=== PATIENT | female | born 1985 | race American Indian/Alaskan Native ===

== ENCOUNTER 2017-04-18 23:23 | Emergency (ER) | payer MEDICAID ==
[2017-04-18 23:47] VITALS: BP 131/88; PULSE 92; RESP 18; TEMP 99; O2SAT 98
--- NOTE | 2017-04-19 | C.PDOC ---
History Of Present Illness Patient presents to the ER with a complaint of severe headache, mild photophobia , and body aches. Patient states she also had a fever earlier today which resolved after taking tylenol. Patient states the headache feels similar to when her myositis acts up. Denies nausea or vomiting. Time Seen by Provider: 04/19/17 00:00 Chief Complaint (Nursing): Headache History Per: Patient History/Exam Limitations: no limitations Onset/Duration Of Symptoms: Hrs Current Symptoms Are (Timing): Still Present Severity: Mild Pain Scale Rating Of: 4 Preceeding Symptoms: None Associated Symptoms: denies: Photophobia, Blurred Vision, Nausea, Vomiting, Extremity Weakness Recent travel outside of the [place]: No Additional History Per: Patient Past Medical History Reviewed: Historical Data, Nursing Documentation, Vital Signs Vital Signs: Last Vital Signs Temp 99.0 F 04/18/17 23:43 Pulse 92 H 04/18/17 23:43 Resp 18 04/18/17 23:43 BP 131/88 04/18/17 23:43 Pulse Ox 98 04/19/17 06:54 - Medical History PMH: Asthma, Deep Vein Thrombosis Surgical History: No Surg Hx Family History: States: No Known Family Hx - Social History Hx Alcohol Use: Yes Hx Substance Use: No - Immunization History Hx Influenza Vaccination: No Review Of Systems Constitutional: Positive for: Fever Eyes: Positive for: Other (Mild photophobia) Cardiovascular: Negative for: Chest Pain Gastrointestinal: Negative for: Nausea, Vomiting Musculoskeletal: Positive for: Other (Body aches). Negative for: Back Pain Skin: Negative for: Rash Neurological: Positive for: Headache Psych: Negative for: Anxiety Physical Exam - Physical Exam Appears: Non-toxic Skin: Warm, Dry Head: Normacephalic Eye(s): bilateral: Normal Inspection, PERRL, EOMI, Other (Mild photophobia) Oral Mucosa: Moist Chest: Symmetrical, No Tenderness Cardiovascular: Rhythm Regular Respiratory: No Rales, No Rhonchi, No Wheezing Gastrointestinal/Abdominal: Soft, No Tenderness Back: No CVA Tenderness Extremity: Normal ROM Extremity: Bilateral: Atraumatic Pulses: Left Dorsalis Pedis: Normal, Right Dorsalis Pedis: Normal Neurological/Psych: Oriented x3, Normal Speech, Normal Cognition Gait: Steady ED Course And Treatment - Laboratory Results Result Diagrams: 04/19/17 00:35 04/19/17 00:35 O2 Sat by Pulse Oximetry: 98 (Room air) Pulse Ox Interpretation: Normal Progress Note: Blood work and urinalysis ordered. Zofran administered. Reevaluation Time: 06:52 Reassessment Condition: Improved Disposition Counseled Patient/Family Regarding: Studies Performed, Diagnosis, Need For Followup, Rx Given - Disposition Referrals: Reji Howard MD [Primary Care Provider] - Disposition: HOME/ ROUTINE Disposition Time: 00:00 Condition: FAIR Instructions: Acute Headache (DC) Forms: [employer] (German) - Clinical Impression Clinical Impression: Migraine - Scribe Statement The provider has reviewed the documentation as recorded by the Scribe Freddy Nina All medical record entries made by the Scribe were at my direction and personally dictated by me. I have reviewed the chart and agree that the record accurately reflects my personal performance of the history, physical exam, medical decision making, and the department course for this patient. I have also personally directed, reviewed, and agree with the discharge instructions and disposition.
[2017-04-19 00:39] LABS: BASO # 0.1 K/uL (0.0-0.2); BASO % 1.4 % (0.0-2.0); EOS # 0.3 K/uL (0.0-0.7); EOS % 4.2 % (0.0-4.0); HEMATOCRIT 47.5 % (34.0-47.0); LYMPH # 1.4 K/uL (1.0-4.3); LYMPH % 18.2 % (20.0-40.0); MEAN CELL VOLUME 88.2 fL (81.0-99.0); MEAN CORPUSCULAR HEMOGLOBIN 29.6 pg (27.0-31.0); MEAN CORPUSCULAR HGB CONC 33.5 g/dL (33.0-37.0); MEAN PLATELET VOLUME 7.7 fL (7.2-11.7); MONO # 0.7 K/uL (0.0-0.8); MONO % 8.6 % (0.0-10.0); NRBC % 0.3 % (0.0-2.0); RED CELL DISTRIBUTION WIDTH 13.6 % (11.5-14.5); WHITE BLOOD COUNT 7.8 K/uL (4.8-10.8)
[2017-04-19 00:43] LABS: INR 1.2
[2017-04-19 00:45] LABS: RBC URINE 4 /hpf (0-3); URINE BACTERIA RARE (<OCC); URINE BILIRUBIN NEGATIVE (NEGATIVE); URINE BLOOD 3+ (NEGATIVE); URINE COLOR Yellow (YELLOW); URINE GLUCOSE (UA) NORMAL (Normal); URINE KETONE TRACE mg/dL (NEGATIVE); URINE LEUKOCYTE ESTERASE NEG Leu/uL (Negative); URINE PROTEIN NEGATIVE (NEGATIVE); URINE UROBILINOGEN NORMAL mg/dL (0.2-1.0); WBC URINE 2 /hpf (0-5)
[2017-04-19 00:51] LABS: CHLORIDE 97 mmol/L (98-107); POTASSIUM 3.9 mmol/L (3.6-5.2); SODIUM 137 mmol/L (132-148)
[2017-04-19 00:53] LABS: GFR AFRICAN-AMERICAN > 60
[2017-04-19 00:54] LABS: ALB/GLOB RATIO 1.3 (1.0-2.1); ALKALINE PHOSPHATASE 66 U/L (38-126); ALT/SGPT 18 U/L (9-52); AST/SGOT 25 U/L (14-36); BILIRUBIN,TOTAL 0.7 mg/dL (0.2-1.3); BLOOD UREA NITROGEN 8 mg/dL (7-17); CARBON DIOXIDE 23 mmol/L (22-30); GLUCOSE,RANDOM 84 mg/dL (65-105); TOTAL PROTEIN 8.7 g/dL (6.3-8.3)
[2017-04-19] MEDS ORDERED: Morphine 4 MG/ML VIAL ONE (01:36)
--- NOTE | 2017-04-19 02:03 | CT ---
EXAM: CT Head Without Intravenous Contrast CLINICAL HISTORY: 32 years old, female; Pain; Headache TECHNIQUE: Axial computed tomography images of the head/brain without intravenous contrast. All CT scans at this facility use one or more dose reduction techniques, viz.: automated exposure control; ma/kV adjustment per patient size (including targeted exams where dose is matched to indication; i.e. head); or iterative reconstruction technique. COMPARISON: No relevant prior studies available. FINDINGS: Brain: No acute intracranial hemorrhage. No significant white matter disease. No edema. Ventricles: No significant ventriculomegaly. Bones: No acute displaced fracture. Sinuses: Unremarkable as visualized. No acute sinusitis. Mastoid air cells: Unremarkable as visualized. No mastoid effusion. IMPRESSION: No acute intracranial hemorrhage, or suspicious mass effect.
[2017-04-19] MEDS ORDERED: Sodium Chloride 0.9% 1,000 ML IV ONE (02:35)
== END 2017-04-19 05:00 | disposition home or self-care (01) ==
LOC: SUPCPDRO 23:23 → C.ER 23:23
DX: G43.909 Migraine, unspecified, not intractable, without status migrainosus (principal)
CPT/HCPCS: 70450; 80053; 81001; 82550; 84703; 85025; 85610; 96374; 96375; 96376; 99284; J1885; J2270; J2405; J7040

== ENCOUNTER 2017-04-19 16:56 | Inpatient (IN) | payer MEDICAID ==
--- NOTE | 2017-04-19 17:33 | C.PDOC ---
Time Seen by Provider: 04/19/17 17:32 Chief Complaint (Nursing): Abnormal Skin Integrity Past Medical History Vital Signs: Last Vital Signs Temp 99.1 F 04/19/17 17:21 Pulse 98 H 04/19/17 17:21 Resp 19 04/19/17 17:21 BP 131/72 04/19/17 17:21 Pulse Ox 96 04/19/17 17:21 - Medical History PMH: Asthma, Deep Vein Thrombosis - Social History Hx Alcohol Use: Yes Hx Substance Use: No - Immunization History Hx Tetanus Toxoid Vaccination: No Hx Influenza Vaccination: (unk) Hx Pneumococcal Vaccination: Yes ED Course And Treatment O2 Sat by Pulse Oximetry: 96 Disposition - Disposition
[2017-04-19] MEDS ORDERED: Sodium Chloride 0.9% 1,000 ML IV ONE (19:38)
--- NOTE | 2017-04-19 19:38 | C.PDOC ---
History Of Present Illness Patient presents to ED with complaints of head ache and rash to left thigh. Patient was seen yesterday at ED for acute migraine and had negative work up. Patient now returns to ed with throbbing dull headache 11/08. Patient denies fever, chills, n/v/d or any other complaints at this time. Patient is on medication for myositis Time Seen by Provider: 04/19/17 17:32 Chief Complaint (Nursing): Abnormal Skin Integrity History Per: Patient History/Exam Limitations: no limitations Onset/Duration Of Symptoms: Days Current Symptoms Are (Timing): Still Present Severity: Mild Pain Scale Rating Of: 2 Reports Recently: Seen In ED Additional History Per: Patient Past Medical History Reviewed: Historical Data, Nursing Documentation, Vital Signs Vital Signs: Last Vital Signs Temp 100.3 F H 04/19/17 18:01 Pulse 98 H 04/19/17 17:21 Resp 19 04/19/17 17:21 BP 131/72 04/19/17 17:21 Pulse Ox 96 04/19/17 22:27 - Medical History PMH: Asthma, Deep Vein Thrombosis Surgical History: No Surg Hx Family History: States: No Known Family Hx - Social History Hx Alcohol Use: Yes Hx Substance Use: No - Immunization History Hx Tetanus Toxoid Vaccination: No Hx Influenza Vaccination: (unk) Hx Pneumococcal Vaccination: Yes Review Of Systems Constitutional: Negative for: Fever, Chills Gastrointestinal: Negative for: Nausea, Vomiting Skin: Positive for: Rash Neurological: Positive for: Headache. Negative for: Weakness, Numbness Physical Exam - Physical Exam Appears: Non-toxic, No Acute Distress Skin: Warm, Dry, Rash (2x3 area of erythema almost vasicular, rash to left mid thigh and 2 small vesicles on left inner thigh) Head: Normacephalic Oral Mucosa: Moist Neck: Normal ROM, Supple Cardiovascular: Rhythm Regular Respiratory: No Rales, No Rhonchi, No Wheezing Gastrointestinal/Abdominal: Soft, No Tenderness, No Guarding, No Rebound Neurological/Psych: Oriented x3 ED Course And Treatment - Laboratory Results Result Diagrams: 04/19/17 20:02 04/19/17 20:02 O2 Sat by Pulse Oximetry: 96 (RA) Pulse Ox Interpretation: Normal Disposition Discussed With : Gilberto Gilbert Comment: accepted the pt on his service and took over the care at 10PM Counseled Patient/Family Regarding: Studies Performed, Diagnosis - Disposition Disposition: HOSPITALIZED Disposition Time: 19:38 Condition: FAIR Forms: [employer] (Sammarinese) - Clinical Impression Clinical Impression: Intractable headache, Skin lesion - Scribe Statement The provider has reviewed the documentation as recorded by the Jerricaibestephania Bansal All medical record entries made by the Jerricaibe were at my direction and personally dictated by me. I have reviewed the chart and agree that the record accurately reflects my personal performance of the history, physical exam, medical decision making, and the department course for this patient. I have also personally directed, reviewed, and agree with the discharge instructions and disposition. Decision To Admit - Pt Status Changed To: Hospital Disposition Of: Inpatient - Admit Certification Admit to Inpatient:: After my assessment, the patient will require hospitalization for at least two midnights. This is because of the severity of symptoms shown, intensity of services needed, and/or the medical risk in this patient being treated as an outpatient. - InPatient: Physician Admission Certification: I certify that this patient requires 2 or more midnights of care for the following reason:: After my assessment, the patient will require hospitalization for at least two midnights. This is because of the severity of symptoms shown, intensity of services needed, and/or the medical risk in this patient being treated as an outpatient. - . Bed Request Type: Regular Admitting Physician: Gilberto Gilbert Patient Diagnosis: Intractable headache, Skin lesion
[2017-04-19 20:11] LABS: VENOUS BLOOD GAS BASE EXCESS -1.9 mmol/L (0.0-2.0); VENOUS BLOOD GAS PCO2 46 mmHg (40-60); VENOUS BLOOD PH 7.33 (7.32-7.43)
[2017-04-19 20:15] LABS: BASO # 0.1 K/uL (0.0-0.2); BASO % 0.8 % (0.0-2.0); EOS # 0.2 K/uL (0.0-0.7); EOS % 2.7 % (0.0-4.0); HEMATOCRIT 39.1 % (34.0-47.0); LYMPH # 0.9 K/uL (1.0-4.3); LYMPH % 13.8 % (20.0-40.0); MEAN CELL VOLUME 86.8 fL (81.0-99.0); MEAN CORPUSCULAR HEMOGLOBIN 29.3 pg (27.0-31.0); MEAN CORPUSCULAR HGB CONC 33.8 g/dL (33.0-37.0); MEAN PLATELET VOLUME 7.9 fL (7.2-11.7); MONO # 0.6 K/uL (0.0-0.8); MONO % 8.8 % (0.0-10.0); NRBC % 0.1 % (0.0-2.0); RED CELL DISTRIBUTION WIDTH 13.7 % (11.5-14.5); WHITE BLOOD COUNT 6.8 K/uL (4.8-10.8)
[2017-04-19 20:26] LABS: CHLORIDE 103 mmol/L (98-107); POTASSIUM 4.1 mmol/L (3.6-5.2); SODIUM 139 mmol/L (132-148)
[2017-04-19 20:28] LABS: AST/SGOT 32 U/L (14-36); BILIRUBIN,TOTAL 0.7 mg/dL (0.2-1.3); CARBON DIOXIDE 24 mmol/L (22-30); GFR AFRICAN-AMERICAN > 60
[2017-04-19 20:29] LABS: ALB/GLOB RATIO 1.2 (1.0-2.1); ALKALINE PHOSPHATASE 50 U/L (38-126); ALT/SGPT 21 U/L (9-52); BLOOD UREA NITROGEN 11 mg/dL (7-17); CALCIUM 8.9 mg/dl (8.6-10.4); GLUCOSE,RANDOM 89 mg/dL (65-105); TOTAL PROTEIN 7.8 g/dL (6.3-8.3)
[2017-04-19] MEDS ORDERED: HYDROmorphone 1 mg/ml ISec IVP STA (21:35)
[2017-04-19] MEDS ORDERED: cefTRIAXone IV 1 gm in Dextros 50 ML IVPB ONE (21:48)
--- NOTE | 2017-04-19 23:22 | CP.PCM.HP ---
Past Patient History - Past Social History Smoking Status: Never Smoked - PULMONARY Hx Asthma: Yes - INTEGUMENTARY Other/Comment: Lypoma - MUSCULOSKELETAL/RHEUMATOLOGICAL Other/Comment: Myositis - PSYCHIATRIC Hx Substance Use: No - SURGICAL HISTORY Hx Surgeries: Yes Other/Comment: muscle biopsy, - ANESTHESIA Hx Anesthesia: Yes Hx Anesthesia Reactions: No Meds Allergies/Adverse Reactions: Allergies Allergy/AdvReac Type Severity Reaction Status Date / Time iodine Allergy Severe ANAPHYLAXIS Verified 04/19/17 17:26 shellfish derived Allergy Severe ANAPHYLAXIS Verified 04/19/17 17:26 Results - Vital Signs Recent Vital Signs: Last Vital Signs Temp 100.3 F H 04/19/17 18:01 Pulse 98 H 04/19/17 17:21 Resp 19 04/19/17 17:21 BP 131/72 04/19/17 17:21 Pulse Ox 96 04/19/17 22:44 - Labs Result Diagrams: 04/19/17 20:02 04/19/17 20:02 Labs: Laboratory Results - last 24 hr 04/19/17 04/19/17 04/19/17 20:00 20:02 20:02 WBC 6.8 RBC 4.50 Hgb 13.2 D Hct 39.1 MCV 86.8 MCH 29.3 MCHC 33.8 RDW 13.7 Plt Count 322 MPV 7.9 Neut % (Auto) 73.9 Lymph % (Auto) 13.8 L [place] % (Auto) 8.8 Eos % (Auto) 2.7 Baso % (Auto) 0.8 Neut # 5.0 Lymph # 0.9 L [place] # 0.6 Eos # 0.2 Baso # 0.1 pO2 25 L VBG pH 7.33 VBG pCO2 46 VBG HCO3 21.9 VBG Total CO2 25.7 VBG O2 Sat (Calc) 49.7 VBG Base Excess -1.9 L VBG Potassium 3.5 L Sodium 141.0 139 Chloride 110.0 H 103 Glucose 81 Lactate 1.1 Potassium 4.1 Carbon Dioxide 24 Anion Gap 16 BUN 11 Creatinine 0.7 Est GFR ( Amer) > 60 Est GFR (Non-Af Amer) > 60 Random Glucose 89 Calcium 8.9 Total Bilirubin 0.7 AST 32 ALT 21 Alkaline Phosphatase 50 Total Protein 7.8 Albumin 4.2 Globulin 3.6 Albumin/Globulin Ratio 1.2 Venous Blood Potassium 3.5 L
[2017-04-20] MEDS ORDERED: Vancomycin 1 GM 0 GM/0 ML BAG IVPB ONE (03:46)
[2017-04-20] MEDS: Enoxaparin 40 mg Syringe SC SCH (10:40)
[2017-04-20] MEDS: Pantoprazole 40 mg EC Tab PO SCH (10:41)
[2017-04-20] MEDS ORDERED: DiphenhydrAMINE 50 mg/ml Inj ONE (12:29)
[2017-04-20] MEDS ORDERED: DiphenhydrAMINE 50 mg/ml Inj IVP STA (12:35)
--- NOTE | 2017-04-20 17:05 | CP.PCM.CON ---
History of Present Illness - History of Present Illness History of Present Illness: Patient presents to ED with complaints of head ache and rash to left thigh. Patient was seen yesterday at ED for acute migraine and had negative work up. Patient now returns to ed with throbbing dull headache 11/08. Patient denies fever, chills, n/v/d or any other complaints at this time. Patient is on medication for myositis Takes tacrolimus prescribed by Rheum dr Silveira - Medical History PMH: Asthma, Deep Vein Thrombosis Myositis Review of Systems - Constitutional Constitutional: Anorexia, Chills, Fever - EENT Eyes: absent: As Per HPI, Blind Spots, Blurred Vision, Change in Vision, Decreased Night Vision, Diplopia, Discharge, Dry Eye, Exophthalmos, Floaters, Irritation, Itchy Eyes, Loss of Peripheral Vision, Pain, Photophobia, Requires Corrective Lenses, Sees Flashes, Spots in Vision, Tunnel Vision, Other Visual Disturbances, Loss of Vision, Other Ears: absent: As Per HPI, Decreased Hearing, Ear Discharge, Ear Pain, Tinnitus, Abnormal Hearing, Disequilibrium, Dizziness, Other Nose/Mouth/Throat: absent: As Per HPI, Epistaxis, Nasal Congestion, Nasal Discharge, Nasal Obstruction, Nasal Trauma, Nose Pain, Post Nasal Drip, Sinus Pain, Sinus Pressure, Bleeding Gums, Change in Voice, Dental Pain, Dry Mouth, Dysphagia, Halitosis, Hoarsness, Lip Swelling, Mouth Lesions, Mouth Pain, Odynophagia, Sore Throat, Throat Swelling, Tongue Swelling, Facial Pain, Neck Pain, Neck Mass, Other - Breasts Breasts: absent: As Per HPI, Change in Shape, Mass, Pain, Nipple Discharge, Nipple Inversion, Skin Changes, Swelling, Other - Cardiovascular Cardiovascular: absent: As Per HPI, Acrocyanosis, Chest Pain, Chest Pain at Rest , Chest Pain with Activity, Claudication, Diaphoresis, Dyspnea, Dyspnea on Exertion, Edema, Irregular Heart Rhythm, Pain Radiating to Arm/Neck/Jaw, Leg Edema, Leg Ulcers, Lightheadedness, Orthopnea, Palpitations, Paroxysmal Nocturnal Dyspnea, Pedal Edema, Radiating Pain, Rapid Heart Rate, Slow Heart Rate, Syncope, Other - Respiratory Respiratory: absent: As Per HPI, Cough, Dyspnea, Hemoptysis, Dyspnea on Exertion , Wheezing, Snoring, Stridor, Pain on Inspiration, Chest Congestion, Excessive Mucous Production, Change in Mucous Color, Pain with Coughing, Other - Gastrointestinal Gastrointestinal: absent: As Per HPI, Abdominal Pain, Belching, Bloating, Change in Bowel Habits, Change in Stool Character, Coffee Ground Emesis, Constipation, Cramping, Diarrhea, Dyspepsia, Dysphagia, Early Satiety, Excessive Flatus, Fecal Incontinence, Heartburn, Hematemesis, Hematochezia, Loose Stools, Melena, Nausea, Odynophagia, Temesmus, Vomiting, Other - Genitourinary Genitourinary: absent: As Per HPI, Change in Urinary Stream, Difficulty Urinating, Dysuria, Flank Pain, Hematuria, Pyuria, Nocturia, Urinary Incontinence, Urinary Frequency, Urinary Hesitance, Urinary Urgency, Voiding Freq/Small Amts, Freq UTI, Hx Renal/Bladder Calculi, Hx /Renal Surgery, Bladder Distension, Other - Reproductive: Female Reproductive:Female: absent: As Per HPI, Amenorrhea, Amenorrhea/ Control, Currently Menstual, Cycle <21 Days, Cycle >35 Days, Cycle Variable, Menses 1-7 Days, Menses >/= 8 Days, Menses Variable, Cycle > 4 Weeks Between, No Menses for 6 Months, Heavy Menses, Light Menses, Normal Menses, Spotting Between Cycles , S/P Hysterectomy, Menopausal, Post Menopausal, Premenarche, Abnormal Vaginal Bleeding, Dysmenorrhea, Dyspareunia, Genital Lesions, Genital Pruritis, Pelvic Pain, Prolapse Symptoms, Sexual Dysfunction, Vaginal Discharge, Vaginal Dryness , Vaginal Odor, Vaginal Pruritis, Other - Menstruation Menstruation: absent: As Per HPI, Amenorrhea, Amenorrhea/ Control, Currently Menstual, Cycle <21 Days, Cycle >35 Days, Cycle Variable, Menses 1-7 Days, Menses >/= 8 Days, Menses Variable, Cycle > 4 Weeks Between, No Menses for 6 Months, Heavy Menses, Light Menses, Normal Menses, Spotting Between Cycles , S/P Hysterectomy, Menopausal, Post Menopausal, Premenarche, Abnormal Vaginal Bleeding, Dysmenorrhea, Other - Musculoskeletal Musculoskeletal: As Per HPI - Integumentary Integumentary: absent: As Per HPI, Acne, Alopecia, Bleeding Lesions, Change in Hair, Change in Nails, Change in Pigmentation, Changing Lesions, Dry Skin, Erythema, Furuncle, Hirsutism, Lesions, New Lesions, Non-Healing Lesions, Photosensitivity, Pruritus, Rash, Skin Pain, Skin Ulcer, Sores, Striae, Swelling , Unusual Bruising, Wounds, Jaundice, Other - Neurological Neurological: As Per HPI - Psychiatric Psychiatric: absent: As Per HPI, Abnormal Sleep Pattern, Anhedonia, Anxiety, Auditory Hallucinations, Behavioral Changes, Change in Appetite, Change in Libido, Confusion, Depression, Difficulty Concentrating, Hallucinations, Homicidal Ideation, Hopelessness, Irritability, Memory Loss, Mood Swings, Panic Attacks, Paranoia, Suicidal Ideation, Visual Hallucinations, Tactile Hallucinations, Other - Endocrine Endocrine: absent: As Per HPI, Change in Body Appearance, Change in Libido, Cold Intolorance, Deepening of Voice, Excessive Sweating, Fatigue, Flushing, Heat Intolorance, Increase in Ring/Shoe/Hat Size, Palpitations, Polydipsia, Polyphagia, Polyuria, Other - Hematologic/Lymphatic Hematologic: absent: As Per HPI, Easy Bleeding, Easy Bruising, Lymphadenopathy, Other Past Patient History - Past Social History Smoking Status: Never Smoked - PULMONARY Hx Asthma: Yes - INTEGUMENTARY Other/Comment: Lypoma - MUSCULOSKELETAL/RHEUMATOLOGICAL Other/Comment: Myositis - PSYCHIATRIC Hx Substance Use: No - SURGICAL HISTORY Hx Surgeries: Yes Other/Comment: muscle biopsy, - ANESTHESIA Hx Anesthesia: Yes Hx Anesthesia Reactions: No Meds Allergies/Adverse Reactions: Allergies Allergy/AdvReac Type Severity Reaction Status Date / Time iodine Allergy Severe ANAPHYLAXIS Verified 04/19/17 17:26 shellfish derived Allergy Severe ANAPHYLAXIS Verified 04/19/17 17:26 - Medications Medications: Current Medications Acetaminophen (Tylenol 325mg Tab) 650 mg PO Q6 PRN PRN Reason: fever Last Admin: 04/20/17 14:33 Dose: 650 mg Enoxaparin Sodium (Lovenox) 40 mg SC DAILY [facility] Last Admin: 04/20/17 10:40 Dose: 40 mg Hydromorphone HCl (Dilaudid) 0.5 mg IVP Q8H PRN PRN Reason: Pain, moderate (4-7) Last Admin: 04/20/17 10:40 Dose: 0.5 mg Ceftriaxone Sodium 1 gm/ (Dextrose) 100 mls @ 50 mls/30 min IVPB DAILY [facility] Vancomycin HCl 1 gm/ Sodium (Chloride) 250 mls @ 166.7 mls/hr IVPB Q24H [facility] Last Admin: 04/20/17 10:41 Dose: 166.7 mls/hr Pantoprazole Sodium (Protonix Ec Tab) 40 mg PO DAILY [facility] Last Admin: 04/20/17 10:41 Dose: 40 mg Physical Exam - Constitutional Appears: Non-toxic, No Acute Distress, Chronically Ill - Head Exam Head Exam: ATRAUMATIC, NORMAL INSPECTION, NORMOCEPHALIC - Eye Exam Eye Exam: EOMI, PERRL. absent: Scleral icterus - ENT Exam ENT Exam: Mucous Membranes Dry, Normal External Ear Exam - Neck Exam Neck exam: Negative for: Lymphadenopathy - Respiratory Exam Respiratory Exam: Decreased Breath Sounds, Clear to Auscultation Bilateral - Cardiovascular Exam Cardiovascular Exam: REGULAR RHYTHM, +S1, +S2 - GI/Abdominal Exam GI & Abdominal Exam: Diminished Bowel Sounds, Soft. absent: Tenderness - Rectal Exam Rectal Exam: Deferred - Exam Exam: NORMAL INSPECTION - Extremities Exam Extremities exam: Positive for: pedal pulses present. Negative for: calf tenderness, pedal edema, tenderness - Back Exam Back exam: absent: CVA tenderness (L), CVA tenderness (R) - Neurological Exam Neurological exam: Alert, CN II-XII Intact, Oriented x3, Reflexes Normal - Psychiatric Exam Psychiatric exam: Normal Mood - Skin Skin Exam: Dry Results - Vital Signs Recent Vital Signs: Last Vital Signs Temp 98.8 F 04/20/17 07:58 Pulse 91 H 04/20/17 15:31 Resp 18 04/20/17 15:31 BP 108/56 L 04/20/17 15:31 Pulse Ox 100 04/20/17 15:31 - Labs Result Diagrams: 04/19/17 20:02 04/19/17 20:02 Labs: Laboratory Results - last 24 hr 04/19/17 04/19/17 04/19/17 20:00 20:02 20:02 WBC 6.8 RBC 4.50 Hgb 13.2 D Hct 39.1 MCV 86.8 MCH 29.3 MCHC 33.8 RDW 13.7 Plt Count 322 MPV 7.9 Neut % (Auto) 73.9 Lymph % (Auto) 13.8 L [place] % (Auto) 8.8 Eos % (Auto) 2.7 Baso % (Auto) 0.8 Neut # 5.0 Lymph # 0.9 L [place] # 0.6 Eos # 0.2 Baso # 0.1 ESR pO2 25 L VBG pH 7.33 VBG pCO2 46 VBG HCO3 21.9 VBG Total CO2 25.7 VBG O2 Sat (Calc) 49.7 VBG Base Excess -1.9 L VBG Potassium 3.5 L Sodium 141.0 139 Chloride 110.0 H 103 Glucose 81 Lactate 1.1 Potassium 4.1 Carbon Dioxide 24 Anion Gap 16 BUN 11 Creatinine 0.7 Est GFR ( Amer) > 60 Est GFR (Non-Af Amer) > 60 Random Glucose 89 Hemoglobin A1c Calcium 8.9 Total Bilirubin 0.7 AST 32 ALT 21 Alkaline Phosphatase 50 C-React Prot High Sens Total Protein 7.8 Albumin 4.2 Globulin 3.6 Albumin/Globulin Ratio 1.2 TSH 3rd Generation Venous Blood Potassium 3.5 L Rheum Arthritis Panel [place] 6 Profile [place]LL Titer [place] Pattern 04/20/17 04/20/17 04/20/17 07:26 07:47 07:47 WBC RBC Hgb Hct MCV MCH MCHC RDW Plt Count MPV Neut % (Auto) Lymph % (Auto) [place] % (Auto) Eos % (Auto) Baso % (Auto) Neut # Lymph # [place] # Eos # Baso # ESR 32 H pO2 VBG pH VBG pCO2 VBG HCO3 VBG Total CO2 VBG O2 Sat (Calc) VBG Base Excess VBG Potassium Sodium Chloride Glucose Lactate Potassium Carbon Dioxide Anion Gap BUN Creatinine Est GFR ( Amer) Est GFR (Non-Af Amer) Random Glucose Hemoglobin A1c 5.6 Calcium Total Bilirubin AST ALT Alkaline Phosphatase C-React Prot High Sens Total Protein Albumin Globulin Albumin/Globulin Ratio TSH 3rd Generation Venous Blood Potassium Rheum Arthritis Panel Negative [place] 6 Profile [place]LL Titer [place] Pattern 04/20/17 04/20/17 04/20/17 07:48 07:48 07:50 WBC RBC Hgb Hct MCV MCH MCHC RDW Plt Count MPV Neut % (Auto) Lymph % (Auto) [place] % (Auto) Eos % (Auto) Baso % (Auto) Neut # Lymph # [place] # Eos # Baso # ESR pO2 VBG pH VBG pCO2 VBG HCO3 VBG Total CO2 VBG O2 Sat (Calc) VBG Base Excess VBG Potassium Sodium Chloride Glucose Lactate Potassium Carbon Dioxide Anion Gap BUN Creatinine Est GFR ( Amer) Est GFR (Non-Af Amer) Random Glucose Hemoglobin A1c Calcium Total Bilirubin AST ALT Alkaline Phosphatase C-React Prot High Sens > 15.00 H Total Protein Albumin Globulin Albumin/Globulin Ratio TSH 3rd Generation 0.85 Venous Blood Potassium Rheum Arthritis Panel [place] 6 Profile Positive H [place] Titer 1:80 H [place] Pattern Speckled H Assessment & Plan (1) Intractable headache Status: Acute (2) Skin lesion Status: Acute (3) Migraine Status: Acute - Assessment and Plan (Free Text) Assessment: cont empiric iv antibiotic check lyme titers cdroplet precautions check CD4 on tacrolimus
[2017-04-20] MEDS ORDERED: cefTRIAXone 2 GM IN NS 2 GM/100 ML BAG IVPB SCH (17:15)
--- NOTE | 2017-04-20 17:41 | CP.PCM.PN ---
Subjective - Date & Time of Evaluation Date of Evaluation: 04/20/17 Time of Evaluation: 10:00 - Subjective Subjective: clinically same Objective - Vital Signs/Intake and Output Vital Signs (last 24 hours): Temp Pulse Resp BP Pulse Ox 98.8 F 91 H 18 108/56 L 100 04/20/17 07:58 04/20/17 15:31 04/20/17 15:31 04/20/17 15:31 04/20/17 15:31 - Medications Medications: Current Medications Acetaminophen (Tylenol 325mg Tab) 650 mg PO Q6 PRN PRN Reason: fever Last Admin: 04/20/17 14:33 Dose: 650 mg Enoxaparin Sodium (Lovenox) 40 mg SC DAILY [facility] Last Admin: 04/20/17 10:40 Dose: 40 mg Hydromorphone HCl (Dilaudid) 0.5 mg IVP Q8H PRN PRN Reason: Pain, moderate (4-7) Last Admin: 04/20/17 10:40 Dose: 0.5 mg Vancomycin HCl 1 gm/ Sodium (Chloride) 250 mls @ 166.7 mls/hr IVPB Q24H [facility] Last Admin: 04/20/17 10:41 Dose: 166.7 mls/hr Ceftriaxone Sodium 2 gm/ (Sodium Chloride) 100 mls @ 100 mls/hr IVPB Q12H [facility] Pantoprazole Sodium (Protonix Ec Tab) 40 mg PO DAILY [facility] Last Admin: 04/20/17 10:41 Dose: 40 mg - Labs Labs: 04/19/17 20:02 04/19/17 20:02 - Constitutional Appears: Well - Head Exam Head Exam: ATRAUMATIC, NORMAL INSPECTION, NORMOCEPHALIC - Eye Exam Eye Exam: EOMI, Normal appearance, PERRL Pupil Exam: NORMAL ACCOMODATION, PERRL - ENT Exam ENT Exam: Mucous Membranes Moist, Normal Exam - Neck Exam Neck Exam: Full ROM, Normal Inspection. absent: Lymphadenopathy - Respiratory Exam Respiratory Exam: Decreased Breath Sounds - Cardiovascular Exam Cardiovascular Exam: REGULAR RHYTHM, +S1, +S2 - GI/Abdominal Exam GI & Abdominal Exam: Soft, Diminished Bowel Sounds - Rectal Exam Rectal Exam: Deferred Assessment and Plan - Assessment and Plan (Free Text) Plan: Area started on acyclovir for the lower limb rash also by Dr. Lantigua Case discussed with Dr. Grzegorz muniz Rocephin and vancomycin all the patient had itchiness in the morning status post Benadryl IV continue same patient has no fever so far patient has no meningismal sign no need for the lumbar puncture and discussed with Dr. Cid
[2017-04-20] MEDS: cefTRIAXone 2 GM in Sodium Chloride 0.9% 100 ML IVPB SCH (18:39)
[2017-04-20] MEDS: Acyclovir 500 MG in Sodium Chloride 0.9% 100 ML IV SCH (20:38)
[2017-04-20] MEDS ORDERED: cefTRIAXone IV 1 gm in Dextros 1 GM in Dextrose 5% In Water 50 ML IVPB SCH (22:00)
[2017-04-20 23:56] VITALS: RESP 20
[2017-04-21] MEDS: Acyclovir 500 MG in Sodium Chloride 0.9% 100 ML IV SCH ×3 (03:17→20:39)
[2017-04-21] MEDS: cefTRIAXone 2 GM in Sodium Chloride 0.9% 100 ML IVPB SCH ×2 (05:01→18:40)
[2017-04-21] MEDS: Pantoprazole 40 mg EC Tab PO SCH (09:07)
[2017-04-21] MEDS: Enoxaparin 40 mg Syringe SC SCH (09:07)
[2017-04-21] MEDS ORDERED: DiphenhydrAMINE 12.5 mg/5 ml LIQ UD (5 ml) PO ONE (13:00)
--- NOTE | 2017-04-21 14:16 | CON ---
DATE: 04/21/2017 REASON FOR THE CONSULTATION: Headache. CHIEF COMPLIANT: The patient was brought into [facility] with history of 3-4 days of headache. From neurologic point of view, I was called into evaluate her for further management. HISTORY OF PRESENT ILLNESS: Ms. 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 Headache is 4-6/10, headache range associated with photophobia. Not associated with nausea or vomiting. No history of neck pain. No history of flu symptoms. No history of recent travel. No history of new medication. She admitted with new rash over her left thigh region, increasing pain lately especially for today. PAST MEDICAL HISTORY: Collagen vascular disease/myositis and asthma. PERSONAL HISTORY: Denies smoking or alcohol use. No history of illicit drugs. REVIEW OF SYSTEMS: A 16-point review of systems being reviewed. Neurologically, the patient does have new headache. MEDICATIONS: Acylovir, ceftriaxone, Dilaudid, Lovenox, Protonix, Tylenol, and vancomycin. PHYSICAL EXAMINATION: VITAL SIGNS: Blood pressure 110/71, mean arterial pressure of 84, respiratory rate 18, and temperature 99.2. NECK: No Kernig sign. No Brudzinski sign. HEART: Sounds regular. No murmur. NEUROLOGIC: MENTAL STATUS EXAMINATION: She is awake, alert, and oriented to person, place and time. Speech is clear. Naming, repetition, fluency, and comprehension all within normal. Cranial nerve examination; visual field intact. Pupils reactive to light. Extraocular movement normal. No nystagmus. No facial sensory deficit. No facial asymmetry. Hearing is normal. Tongue is midline. Good gag. MOTOR EXAMINATION: Outstretched hand with eyes closed. No drift noted. Power is symmetric on either side. Deep tendon reflexes; biceps, brachialis, triceps, knee, and ankle all are 2+. Plantars are downgoing. SENSORY EXAMINATION: Grossly intact. COORDINATION: [id number] test is intact. EXAMINATION OF THE SKIN: The patient does show therapeutic blisters with hyperemic changes over left L3 dermatome consistent with herpes zoster. LABORATORY DATA: Workup; WBC 6.8, hemoglobin 13.2, hematocrit 39.1, and platelet 322. ESR 32. Sodium 139, potassium 4.1, chloride 103, bicarbonate 24, GFR more than 60, calcium 8.9, hemoglobin A1c 5.6, CPK of 15, total CK 154, TSH 0.85, and procalcitonin 0.05. Rheumatoid panel; CAMPBELL 6 profile positive, CAMPBELL titer 1:80, and CAMPBELL pattern is speckled. CONCLUSION: Ms. Marry Mack has been presenting with new onset of headache, which probably seems to be a viral cause. The patient already on antibiotics and antiviral drug. The patient also showed evidence of left L3 dermatomal herpes zoster. RECOMMENDATIONS: 1. MRI of the brain and MR angiogram to rule out angiitis. 2. Blood workup for herpes zoster. 3. Continue antibiotic and antiviral drug as she has been getting. 4. The patient was given Solu-Medrol 250 mg q.8 hours for 3 days to see the response from steroid for her headache. 5. IV hydration. The patient has been getting prednisone as outpatient, Pulsing high dose Solu-Medrol for her headache at present. If clinical status is not improved, I strongly recommend spinal tap to be done. The patient will be followed closely with you. Frank Aburto MD [id number]
--- NOTE | 2017-04-21 14:17 | CP.PCM.PN ---
Subjective - Date & Time of Evaluation Date of Evaluation: 04/21/17 Time of Evaluation: 14:15 - Subjective Subjective: Progress note. Attending: Teresa Gilbert Pt seen and examined at bedside. NO acute distress, but uncomfortable appearing. Will get mri today. Had fever this morning. reports headache and fever. ID, neuro following Objective - Vital Signs/Intake and Output Vital Signs (last 24 hours): Temp Pulse Resp BP Pulse Ox 101.3 F H 89 20 138/85 95 04/21/17 08:20 04/21/17 08:20 04/21/17 08:20 04/21/17 08:20 04/21/17 08:20 - Medications Medications: Current Medications Acetaminophen (Tylenol 325mg Tab) 650 mg PO Q6 PRN PRN Reason: fever Last Admin: 04/21/17 09:07 Dose: 650 mg Enoxaparin Sodium (Lovenox) 40 mg SC DAILY [facility] Last Admin: 04/21/17 09:07 Dose: 40 mg Hydromorphone HCl (Dilaudid) 0.5 mg IVP Q8H PRN PRN Reason: Pain, moderate (4-7) Last Admin: 04/21/17 10:18 Dose: 0.5 mg Vancomycin HCl 1 gm/ Sodium (Chloride) 250 mls @ 166.7 mls/hr IVPB Q24H [facility] Last Admin: 04/21/17 10:21 Dose: 166.7 mls/hr Ceftriaxone Sodium 2 gm/ (Sodium Chloride) 100 mls @ 100 mls/hr IVPB Q12H [facility] Last Admin: 04/21/17 05:01 Dose: 100 mls/hr Acyclovir 500 mg/ Sodium (Chloride) 100 mls @ 100 mls/hr IV Q8H [facility] Last Admin: 04/21/17 13:34 Dose: Not Given Methylprednisolone (Solu-Medrol) 250 mg IV Q8 [facility] Pantoprazole Sodium (Protonix Ec Tab) 40 mg PO DAILY [facility] Last Admin: 04/21/17 09:07 Dose: 40 mg - Labs Labs: 04/19/17 20:02 04/19/17 20:02 - Constitutional Appears: Non-toxic, No Acute Distress - Head Exam Head Exam: ATRAUMATIC, NORMAL INSPECTION, NORMOCEPHALIC - Eye Exam Eye Exam: EOMI - ENT Exam ENT Exam: Mucous Membranes Moist - Respiratory Exam Respiratory Exam: NORMAL BREATHING PATTERN. absent: Respiratory Distress - Cardiovascular Exam Cardiovascular Exam: +S1, +S2 - GI/Abdominal Exam GI & Abdominal Exam: Soft, Normal Bowel Sounds. absent: Tenderness - Extremities Exam Extremities Exam: Full ROM, Normal Inspection - Back Exam Back Exam: NORMAL INSPECTION - Neurological Exam Neurological Exam: Alert, Awake, Oriented x3 - Psychiatric Exam Psychiatric exam: Normal Affect, Normal Mood - Skin Skin Exam: Dry, Intact, Normal Color, Rash, Warm Additional comments: herpetic rash left thigh Assessment and Plan - Assessment and Plan (Free Text) Assessment: This is a 32 yo female with past medical hx of myositis, asthma, DVT presenting with headache x 5 days 1. Headache, r/o meningitis -droplet precautions -ID consulted. recs appreciated -neuro consulted. recs appreciated -MRI pending -CAMPBELL positive -Dr. Aguilar consulted. recs appreciated -tylenol for fever -continue IV acyclovir -ESR mildly elevated -continue IV ceftriaxone -dilaudid for pain -we have started IV solumedrol -IV vanco -cultures pending 2. Rash left thigh -possibly herpetic in nature -benadryl for itchiness -continue to monitor 3. hx of DVT -lovenox daily 4. GI/DVT ppx -lovenox daily -protonix daily discussed with Dr. Gilbert
--- NOTE | 2017-04-21 15:15 | CP.PCM.CON ---
History of Present Illness - History of Present Illness History of Present Illness: CONSULT DICTATED VIRAL SYNDROME HERPES ZOSTER LEFT L3 SOLUMEDROL MRI AND MRA BRAIN IF HER CONDITION WORSE NEEDS LP CONTIUE ANTIBIOTICS AND ANTI VIRAL Past Patient History - Past Medical History & Family History Past Medical History?: Yes - Past Social History Smoking Status: Never Smoked - PULMONARY Hx Asthma: Yes - INTEGUMENTARY Other/Comment: Lypoma - MUSCULOSKELETAL/RHEUMATOLOGICAL Other/Comment: Myositis - PSYCHIATRIC Hx Substance Use: No - SURGICAL HISTORY Hx Surgeries: Yes Other/Comment: muscle biopsy, - ANESTHESIA Hx Anesthesia: Yes Hx Anesthesia Reactions: No Meds Allergies/Adverse Reactions: Allergies Allergy/AdvReac Type Severity Reaction Status Date / Time iodine Allergy Severe ANAPHYLAXIS Verified 04/19/17 17:26 shellfish derived Allergy Severe ANAPHYLAXIS Verified 04/19/17 17:26 - Medications Medications: Current Medications Acetaminophen (Tylenol 325mg Tab) 650 mg PO Q6 PRN PRN Reason: fever Last Admin: 04/21/17 09:07 Dose: 650 mg Enoxaparin Sodium (Lovenox) 40 mg SC DAILY [facility] Last Admin: 04/21/17 09:07 Dose: 40 mg Hydromorphone HCl (Dilaudid) 0.5 mg IVP Q8H PRN PRN Reason: Pain, moderate (4-7) Last Admin: 04/21/17 10:18 Dose: 0.5 mg Vancomycin HCl 1 gm/ Sodium (Chloride) 250 mls @ 166.7 mls/hr IVPB Q24H [facility] Last Admin: 04/21/17 10:21 Dose: 166.7 mls/hr Ceftriaxone Sodium 2 gm/ (Sodium Chloride) 100 mls @ 100 mls/hr IVPB Q12H [facility] Last Admin: 04/21/17 05:01 Dose: 100 mls/hr Acyclovir 500 mg/ Sodium (Chloride) 100 mls @ 100 mls/hr IV Q8H [facility] Last Admin: 04/21/17 13:34 Dose: Not Given Methylprednisolone (Solu-Medrol) 250 mg IV Q8 [facility] Pantoprazole Sodium (Protonix Ec Tab) 40 mg PO DAILY [facility] Last Admin: 04/21/17 09:07 Dose: 40 mg Results - Vital Signs Recent Vital Signs: Last Vital Signs Temp 101.3 F H 04/21/17 08:20 Pulse 89 04/21/17 08:20 Resp 20 09/21/17 08:20 BP 138/85 04/21/17 08:20 Pulse Ox 95 04/21/17 08:20 - Labs Result Diagrams: 04/19/17 20:02 04/19/17 20:02 Labs: Laboratory Results - last 24 hr 04/20/17 04/20/17 19:53 19:53 Total Creatine Kinase 154 H Procalcitonin < 0.05 L
[2017-04-21 16:38] LABS: BASO # 0.1 K/uL (0.0-0.2); BASO % 1.1 % (0.0-2.0); EOS # 0.3 K/uL (0.0-0.7); EOS % 5.3 % (0.0-4.0); HEMATOCRIT 35.6 % (34.0-47.0); LYMPH # 1.5 K/uL (1.0-4.3); LYMPH % 27.8 % (20.0-40.0); MEAN CELL VOLUME 87.6 fL (81.0-99.0); MEAN CORPUSCULAR HEMOGLOBIN 28.6 pg (27.0-31.0); MEAN CORPUSCULAR HGB CONC 32.7 g/dL (33.0-37.0); MEAN PLATELET VOLUME 7.6 fL (7.2-11.7); MONO # 0.8 K/uL (0.0-0.8); MONO % 14.9 % (0.0-10.0); NRBC % 0.1 % (0.0-2.0); RED CELL DISTRIBUTION WIDTH 13.2 % (11.5-14.5); WHITE BLOOD COUNT 5.3 K/uL (4.8-10.8)
[2017-04-21 16:41] LABS: CHLORIDE 101 mmol/L (98-107)
[2017-04-21 16:42] LABS: POTASSIUM 3.4 mmol/L (3.6-5.2); SODIUM 137 mmol/L (132-148)
[2017-04-21 16:44] LABS: ALB/GLOB RATIO 1.1 (1.0-2.1); ALKALINE PHOSPHATASE 49 U/L (38-126); ALT/SGPT 24 U/L (9-52); AST/SGOT 25 U/L (14-36); BILIRUBIN,TOTAL 0.5 mg/dL (0.2-1.3); BLOOD UREA NITROGEN 7 mg/dL (7-17); CARBON DIOXIDE 23 mmol/L (22-30); GFR AFRICAN-AMERICAN > 60; GLUCOSE,RANDOM 96 mg/dL (65-105); TOTAL PROTEIN 7.8 g/dL (6.3-8.3)
[2017-04-21 16:45] LABS: CALCIUM 8.9 mg/dl (8.6-10.4); MAGNESIUM 1.9 mg/dL (1.6-2.3); PHOSPHOROUS 3.1 mg/dL (2.5-4.5)
--- NOTE | 2017-04-21 17:25 | CP.PCM.PN ---
Subjective - Date & Time of Evaluation Date of Evaluation: 04/21/17 Time of Evaluation: 09:00 - Subjective Subjective: clinically same Objective - Vital Signs/Intake and Output Vital Signs (last 24 hours): Temp Pulse Resp BP Pulse Ox 99.4 F 92 H 20 144/90 99 04/21/17 16:23 04/21/17 16:23 04/21/17 16:23 04/21/17 16:23 04/21/17 16:23 - Medications Medications: Current Medications Acetaminophen (Tylenol 325mg Tab) 650 mg PO Q6 PRN PRN Reason: fever Last Admin: 04/21/17 09:07 Dose: 650 mg Enoxaparin Sodium (Lovenox) 40 mg SC DAILY [facility] Last Admin: 04/21/17 09:07 Dose: 40 mg Hydromorphone HCl (Dilaudid) 0.5 mg IVP Q8H PRN PRN Reason: Pain, moderate (4-7) Last Admin: 04/21/17 10:18 Dose: 0.5 mg Vancomycin HCl 1 gm/ Sodium (Chloride) 250 mls @ 166.7 mls/hr IVPB Q24H [facility] Last Admin: 04/21/17 10:21 Dose: 166.7 mls/hr Ceftriaxone Sodium 2 gm/ (Sodium Chloride) 100 mls @ 100 mls/hr IVPB Q12H [facility] Last Admin: 04/21/17 05:01 Dose: 100 mls/hr Acyclovir 500 mg/ Sodium (Chloride) 100 mls @ 100 mls/hr IV Q8H [facility] Last Admin: 04/21/17 13:34 Dose: Not Given Methylprednisolone (Solu-Medrol) 250 mg IV Q8 [facility] Last Admin: 04/21/17 16:23 Dose: 250 mg Pantoprazole Sodium (Protonix Ec Tab) 40 mg PO DAILY [facility] Last Admin: 04/21/17 09:07 Dose: 40 mg - Labs Labs: 04/21/17 16:28 04/21/17 16:28 - Constitutional Appears: Well - Head Exam Head Exam: ATRAUMATIC, NORMAL INSPECTION, NORMOCEPHALIC - Eye Exam Eye Exam: EOMI, Normal appearance, PERRL Pupil Exam: NORMAL ACCOMODATION, PERRL - ENT Exam ENT Exam: Mucous Membranes Moist, Normal Exam - Neck Exam Neck Exam: Full ROM, Normal Inspection. absent: Lymphadenopathy - Respiratory Exam Respiratory Exam: Decreased Breath Sounds - Cardiovascular Exam Cardiovascular Exam: REGULAR RHYTHM, +S1, +S2 - GI/Abdominal Exam GI & Abdominal Exam: Soft, Diminished Bowel Sounds - Rectal Exam Rectal Exam: Deferred
--- NOTE | 2017-04-21 18:36 | CP.PCM.PN ---
Subjective - Date & Time of Evaluation Date of Evaluation: 04/21/17 Time of Evaluation: 09:00 - Subjective Subjective: VIRAL SYNDROME HERPES ZOSTER LEFT L3 SOLUMEDROL MRI AND MRA BRAIN IF HER CONDITION WORSE NEEDS LP CONTIUE ANTIBIOTICS AND ANTI VIRAL Objective - Vital Signs/Intake and Output Vital Signs (last 24 hours): Temp Pulse Resp BP Pulse Ox 99.4 F 92 H 20 144/90 99 04/21/17 16:23 04/21/17 16:23 04/21/17 16:23 04/21/17 16:23 04/21/17 16:23 - Medications Medications: Current Medications Acetaminophen (Tylenol 325mg Tab) 650 mg PO Q6 PRN PRN Reason: fever Last Admin: 04/21/17 09:07 Dose: 650 mg Enoxaparin Sodium (Lovenox) 40 mg SC DAILY [facility] Last Admin: 04/21/17 09:07 Dose: 40 mg Hydromorphone HCl (Dilaudid) 0.5 mg IVP Q8H PRN PRN Reason: Pain, moderate (4-7) Last Admin: 04/21/17 10:18 Dose: 0.5 mg Vancomycin HCl 1 gm/ Sodium (Chloride) 250 mls @ 166.7 mls/hr IVPB Q24H [facility] Last Admin: 04/21/17 10:21 Dose: 166.7 mls/hr Ceftriaxone Sodium 2 gm/ (Sodium Chloride) 100 mls @ 100 mls/hr IVPB Q12H [facility] Last Admin: 04/21/17 05:01 Dose: 100 mls/hr Acyclovir 500 mg/ Sodium (Chloride) 100 mls @ 100 mls/hr IV Q8H [facility] Last Admin: 04/21/17 13:34 Dose: Not Given Methylprednisolone (Solu-Medrol) 250 mg IV Q8 [facility] Last Admin: 04/21/17 16:23 Dose: 250 mg Pantoprazole Sodium (Protonix Ec Tab) 40 mg PO DAILY [facility] Last Admin: 04/21/17 09:07 Dose: 40 mg - Labs Labs: 04/21/17 16:28 04/21/17 16:28 - Constitutional Appears: Non-toxic, Chronically Ill - Head Exam Head Exam: NORMOCEPHALIC - Eye Exam Eye Exam: PERRL Pupil Exam: absent: NORMAL ACCOMODATION - ENT Exam ENT Exam: Mucous Membranes Dry - Neck Exam Neck Exam: absent: Lymphadenopathy - Respiratory Exam Respiratory Exam: Decreased Breath Sounds - Cardiovascular Exam Cardiovascular Exam: REGULAR RHYTHM - GI/Abdominal Exam GI & Abdominal Exam: Distended Assessment and Plan (1) Intractable headache Status: Acute (2) Skin lesion Status: Acute (3) Migraine Status: Acute
[2017-04-22] MEDS ORDERED: Potassium Chloride 10 mEq ER Tab PO STA (00:32)
[2017-04-22] MEDS: Acyclovir 500 MG in Sodium Chloride 0.9% 100 ML IV SCH ×3 (04:14→22:52)
[2017-04-22] MEDS: cefTRIAXone 2 GM in Sodium Chloride 0.9% 100 ML IVPB SCH ×2 (06:25→18:07)
--- NOTE | 2017-04-22 08:01 | PN ---
DATE: 04/22/2017 NEUROLOGICAL PROBLEM: Viral syndrome, headache, myositis, and herpes zoster. PHYSICAL EXAMINATION: VITAL SIGNS: Blood pressure 144/90, mean arterial pressure of 108, respiratory rate of 16, temperature 99.4, pulse rate 92. The patient claims her headache is 80% better, more awake, alert, no confusion. Examination does not show any evidence of meningitis or encephalitis. Still complaining of pain over the left thigh region due to herpes zoster. ASSESSMENT AND PLAN: The patient can be benefited of giving gabapentin and the dose can be titrated for her zoster pain. The patient agreed to have MRI of the brain, which can be done with sedation. The patient does not need spinal tap. The patient will follow closely. Frank Aburto MD
[2017-04-22 08:16] LABS: BASO % 0.2 % (0.0-2.0); EOS % 0.1 % (0.0-4.0); HEMATOCRIT 38.9 % (34.0-47.0); LYMPH # 0.8 K/uL (1.0-4.3); LYMPH % 30.5 % (20.0-40.0); MEAN CORPUSCULAR HEMOGLOBIN 29.2 pg (27.0-31.0); MEAN CORPUSCULAR HGB CONC 34.1 g/dL (33.0-37.0); MEAN PLATELET VOLUME 7.9 fL (7.2-11.7); MONO # 0.2 K/uL (0.0-0.8); MONO % 6.1 % (0.0-10.0); NRBC % 0.1 % (0.0-2.0); RED CELL DISTRIBUTION WIDTH 13.5 % (11.5-14.5)
[2017-04-22 08:20] LABS: MEAN CELL VOLUME 85.6 fL (81.0-99.0); WHITE BLOOD COUNT 2.6 K/uL (4.8-10.8)
[2017-04-22 08:28] LABS: CHLORIDE 104 mmol/L (98-107)
[2017-04-22 08:29] LABS: POTASSIUM 4.2 mmol/L (3.6-5.2); SODIUM 139 mmol/L (132-148)
[2017-04-22 08:31] LABS: ALB/GLOB RATIO 1.1 (1.0-2.1); ALKALINE PHOSPHATASE 49 U/L (38-126); ALT/SGPT 18 U/L (9-52); AST/SGOT 20 U/L (14-36); BILIRUBIN,TOTAL 0.5 mg/dL (0.2-1.3); BLOOD UREA NITROGEN 8 mg/dL (7-17); CARBON DIOXIDE 23 mmol/L (22-30); GFR AFRICAN-AMERICAN > 60; TOTAL PROTEIN 7.5 g/dL (6.3-8.3)
[2017-04-22 08:32] LABS: CALCIUM 8.9 mg/dl (8.6-10.4); GLUCOSE,RANDOM 132 mg/dL (65-105); MAGNESIUM 1.9 mg/dL (1.6-2.3); PHOSPHOROUS 3.1 mg/dL (2.5-4.5)
--- NOTE | 2017-04-22 09:23 | CP.PCM.PN ---
Subjective - Date & Time of Evaluation Date of Evaluation: 04/22/17 Time of Evaluation: 08:05 - Subjective Subjective: PGY2 Resident - Medicine Progress Note Patient seen and examined at bedside. No overnight events per nursing. Reports feeling tired. PICC line planned for today, patient signed consent. Last fever yesterday morning, 101.3. Tolerating diet. No acute complaints. Objective - Vital Signs/Intake and Output Vital Signs (last 24 hours): Temp Pulse Resp BP Pulse Ox 99.4 F 92 H 20 144/90 99 04/21/17 16:23 04/21/17 16:23 04/21/17 16:23 04/21/17 16:23 04/21/17 16:23 Intake and Output: 04/22/17 04/22/17 06:59 18:59 Intake Total 1050 Balance 1050 - Medications Medications: Current Medications Acetaminophen (Tylenol 325mg Tab) 650 mg PO Q6 PRN PRN Reason: fever Last Admin: 04/21/17 09:07 Dose: 650 mg Enoxaparin Sodium (Lovenox) 40 mg SC DAILY [facility] Last Admin: 04/21/17 09:07 Dose: 40 mg Gabapentin (Neurontin) 300 mg PO BID [facility] Hydromorphone HCl (Dilaudid) 0.5 mg IVP Q8H PRN PRN Reason: Pain, moderate (4-7) Last Admin: 04/21/17 22:33 Dose: 0.5 mg Vancomycin HCl 1 gm/ Sodium (Chloride) 250 mls @ 166.7 mls/hr IVPB Q24H [facility] Last Admin: 04/21/17 10:21 Dose: 166.7 mls/hr Ceftriaxone Sodium 2 gm/ (Sodium Chloride) 100 mls @ 100 mls/hr IVPB Q12H [facility] Last Admin: 04/22/17 06:25 Dose: 100 mls/hr Acyclovir 500 mg/ Sodium (Chloride) 100 mls @ 100 mls/hr IV Q8H [facility] Last Admin: 04/22/17 04:14 Dose: 100 mls/hr Methylprednisolone (Solu-Medrol) 250 mg IV Q8 [facility] Last Admin: 04/22/17 05:35 Dose: 250 mg Pantoprazole Sodium (Protonix Ec Tab) 40 mg PO DAILY [facility] Last Admin: 04/21/17 09:07 Dose: 40 mg - Labs Labs: 04/22/17 08:01 04/22/17 08:01 - Additional Findings Additional findings: - Constitutional Appears: Non-toxic, No Acute Distress - Head Exam Head Exam: ATRAUMATIC, NORMAL INSPECTION, NORMOCEPHALIC - Eye Exam Eye Exam: EOMI - ENT Exam ENT Exam: Mucous Membranes Moist - Respiratory Exam Respiratory Exam: NORMAL BREATHING PATTERN. absent: Respiratory Distress - Cardiovascular Exam Cardiovascular Exam: Regular Rate, +S1, +S2 - GI/Abdominal Exam GI & Abdominal Exam: Soft, Normal Bowel Sounds. absent: Tenderness - Extremities Exam Extremities Exam: Full ROM, Normal Inspection - Back Exam Back Exam: NORMAL INSPECTION - Neurological Exam Neurological Exam: Alert, Awake, Oriented x3 - Psychiatric Exam Psychiatric exam: Normal Affect, Normal Mood - Skin Skin Exam: Dry, Intact, Normal Color, Rash, Warm Additional comments: herpetic rash left thigh Assessment and Plan - Assessment and Plan (Free Text) Assessment: This is a 32 yo female with past medical hx of myositis, asthma, DVT presenting with headache x 5 days 1. Headache, r/o meningitis 04/22: CAMPBELL+; VZV+; L thigh gram stain neg; BC neg; UC neg. PICC line ordered. MRI brain attempted, however patient could not tolerate imaging. Plan for outpatient MRI. -droplet precautions -ID consulted. recs appreciated -neuro consulted. recs appreciated -CAMPBELL positive -ESR mildly elevated -tylenol for fever -continue IV acyclovir -continue IV ceftriaxone -dilaudid for pain -we have started IV solumedrol -IV vanco -cultures pending 2. Rash left thigh 04/22: Continue Acyclovir, ceftriaxone, vanco. -possibly herpetic in nature -benadryl for itchiness -continue to monitor 3. hx of DVT -lovenox daily 4. GI/DVT ppx -lovenox daily -protonix daily discussed with Dr. Gilbert
[2017-04-22] MEDS: Enoxaparin 40 mg Syringe SC SCH (09:27)
[2017-04-22] MEDS: Pantoprazole 40 mg EC Tab PO SCH (09:27)
--- NOTE | 2017-04-22 11:02 | CP.PCM.PN ---
Subjective - Date & Time of Evaluation Date of Evaluation: 04/22/17 Time of Evaluation: 09:00 - Subjective Subjective: clinically same Objective - Vital Signs/Intake and Output Vital Signs (last 24 hours): Temp Pulse Resp BP Pulse Ox 99.4 F 92 H 20 144/90 99 04/21/17 16:23 04/21/17 16:23 04/21/17 16:23 04/21/17 16:23 04/21/17 16:23 Intake and Output: 04/22/17 04/22/17 06:59 18:59 Intake Total 1050 Balance 1050 - Medications Medications: Current Medications Acetaminophen (Tylenol 325mg Tab) 650 mg PO Q6 PRN PRN Reason: fever Last Admin: 04/21/17 09:07 Dose: 650 mg Enoxaparin Sodium (Lovenox) 40 mg SC DAILY [facility] Last Admin: 04/22/17 09:27 Dose: 40 mg Gabapentin (Neurontin) 300 mg PO BID [facility] Last Admin: 04/22/17 09:27 Dose: 300 mg Hydromorphone HCl (Dilaudid) 0.5 mg IVP Q8H PRN PRN Reason: Pain, moderate (4-7) Last Admin: 04/21/17 22:33 Dose: 0.5 mg Vancomycin HCl 1 gm/ Sodium (Chloride) 250 mls @ 166.7 mls/hr IVPB Q24H [facility] Last Admin: 04/22/17 09:27 Dose: 166.7 mls/hr Ceftriaxone Sodium 2 gm/ (Sodium Chloride) 100 mls @ 100 mls/hr IVPB Q12H [facility] Last Admin: 04/22/17 06:25 Dose: 100 mls/hr Acyclovir 500 mg/ Sodium (Chloride) 100 mls @ 100 mls/hr IV Q8H [facility] Last Admin: 04/22/17 04:14 Dose: 100 mls/hr Methylprednisolone (Solu-Medrol) 250 mg IV Q8 [facility] Last Admin: 04/22/17 05:35 Dose: 250 mg Pantoprazole Sodium (Protonix Ec Tab) 40 mg PO DAILY [facility] Last Admin: 04/22/17 09:27 Dose: 40 mg - Labs Labs: 04/22/17 08:01 04/22/17 08:01 - Constitutional Appears: Well - Head Exam Head Exam: ATRAUMATIC, NORMAL INSPECTION, NORMOCEPHALIC - Eye Exam Eye Exam: EOMI, Normal appearance, PERRL Pupil Exam: NORMAL ACCOMODATION, PERRL - ENT Exam ENT Exam: Mucous Membranes Moist, Normal Exam - Neck Exam Neck Exam: Full ROM, Normal Inspection. absent: Lymphadenopathy - Respiratory Exam Respiratory Exam: Decreased Breath Sounds - Cardiovascular Exam Cardiovascular Exam: REGULAR RHYTHM, +S1, +S2 - GI/Abdominal Exam GI & Abdominal Exam: Soft, Diminished Bowel Sounds - Rectal Exam Rectal Exam: Deferred
--- NOTE | 2017-04-22 13:07 | RAD ---
HISTORY: Verify right PICC COMPARISON: None available. TECHNIQUE: Chest, one view. FINDINGS: Distal tip of the right-sided PICC extends to the proximal right atrium. LUNGS: Interstitial prominence may reflect infection or edema. Please note that chest x-ray has limited sensitivity for the detection of pulmonary masses. PLEURA: No significant pleural effusion identified. No definite pneumothorax . CARDIOVASCULAR: Borderline cardiomegaly, likely exaggerated by hypoinflation. OSSEOUS STRUCTURES: No acute osseous abnormality identified. VISUALIZED UPPER ABDOMEN: Unremarkable. OTHER FINDINGS: None. IMPRESSION: Distal tip of the right-sided PICC extends the expected location of the proximal right atrium. Interstitial prominence may reflect infection or edema.
--- NOTE | 2017-04-22 18:21 | CP.PCM.PN ---
Subjective - Date & Time of Evaluation Date of Evaluation: 04/22/17 Time of Evaluation: 09:00 - Subjective Subjective: blood c/s neg zoster lesions spreading IV acyclovir to continue needs careful monitoring Objective - Vital Signs/Intake and Output Vital Signs (last 24 hours): Temp Pulse Resp BP Pulse Ox 97.8 F 67 20 124/74 97 04/22/17 15:34 04/22/17 15:34 04/22/17 15:34 04/22/17 15:34 04/22/17 15:34 Intake and Output: 04/22/17 04/22/17 06:59 18:59 Intake Total 1050 200 Balance 1050 200 - Medications Medications: Current Medications Acetaminophen (Tylenol 325mg Tab) 650 mg PO Q6 PRN PRN Reason: fever Last Admin: 04/21/17 09:07 Dose: 650 mg Enoxaparin Sodium (Lovenox) 40 mg SC DAILY [facility] Last Admin: 04/22/17 09:27 Dose: 40 mg Gabapentin (Neurontin) 300 mg PO BID [facility] Last Admin: 04/22/17 18:07 Dose: 300 mg Hydromorphone HCl (Dilaudid) 0.5 mg IVP Q8H PRN PRN Reason: Pain, moderate (4-7) Last Admin: 04/21/17 22:33 Dose: 0.5 mg Vancomycin HCl 1 gm/ Sodium (Chloride) 250 mls @ 166.7 mls/hr IVPB Q24H [facility] Last Admin: 04/22/17 09:27 Dose: 166.7 mls/hr Acyclovir 500 mg/ Sodium (Chloride) 100 mls @ 100 mls/hr IV Q8H [facility] Methylprednisolone (Solu-Medrol) 250 mg IV Q8 [facility] Last Admin: 04/22/17 14:51 Dose: 250 mg Pantoprazole Sodium (Protonix Ec Tab) 40 mg PO DAILY [facility] Last Admin: 04/22/17 09:27 Dose: 40 mg - Labs Labs: 04/22/17 08:01 04/22/17 08:01 - Constitutional Appears: Non-toxic, Chronically Ill - Head Exam Head Exam: NORMOCEPHALIC - Eye Exam Eye Exam: PERRL - ENT Exam ENT Exam: Mucous Membranes Dry - Neck Exam Neck Exam: absent: Lymphadenopathy - Respiratory Exam Respiratory Exam: Decreased Breath Sounds - Cardiovascular Exam Cardiovascular Exam: REGULAR RHYTHM - GI/Abdominal Exam GI & Abdominal Exam: Distended Assessment and Plan (1) Intractable headache Status: Acute (2) Skin lesion Status: Acute (3) Migraine Status: Acute
[2017-04-23] MEDS ORDERED: HYDROmorphone 0.5 mg/0.5 ml ISec IVP PRN (02:45)
[2017-04-23] MEDS: Acyclovir 500 MG in Sodium Chloride 0.9% 100 ML IV SCH ×3 (06:33→22:52)
[2017-04-23] MEDS: Enoxaparin 40 mg Syringe SC SCH (10:46)
[2017-04-23] MEDS: Pantoprazole 40 mg EC Tab PO SCH (10:47)
--- NOTE | 2017-04-23 18:51 | CP.PCM.PN ---
Subjective - Date & Time of Evaluation Date of Evaluation: 04/23/17 Time of Evaluation: 08:20 - Subjective Subjective: clinically same Objective - Vital Signs/Intake and Output Vital Signs (last 24 hours): Temp Pulse Resp BP Pulse Ox 98 F 52 L 20 125/58 L 97 04/23/17 16:00 04/23/17 16:00 04/23/17 16:00 04/23/17 16:00 04/23/17 16:00 Intake and Output: 04/23/17 04/23/17 06:59 18:59 Intake Total 850 900 Balance 850 900 - Medications Medications: Current Medications Acetaminophen (Tylenol 325mg Tab) 650 mg PO Q6 PRN PRN Reason: fever Last Admin: 04/21/17 09:07 Dose: 650 mg Enoxaparin Sodium (Lovenox) 40 mg SC DAILY [facility] Last Admin: 04/23/17 10:46 Dose: 40 mg Gabapentin (Neurontin) 300 mg PO BID [facility] Last Admin: 04/23/17 17:46 Dose: 300 mg Hydromorphone HCl (Dilaudid) 0.5 mg IVP Q8H PRN PRN Reason: Pain, moderate (4-7) Vancomycin HCl 1 gm/ Sodium (Chloride) 250 mls @ 166.7 mls/hr IVPB Q24H [facility] Last Admin: 04/23/17 10:48 Dose: 166.7 mls/hr Acyclovir 500 mg/ Sodium (Chloride) 100 mls @ 100 mls/hr IV Q8H [facility] Last Admin: 04/23/17 14:58 Dose: 100 mls/hr Lorazepam (Ativan) 2 mg IVP ONCE ONE Stop: 04/25/17 07:01 Methylprednisolone (Solu-Medrol) 250 mg IV Q8 [facility] Stop: 04/23/17 20:00 Last Admin: 04/23/17 14:15 Dose: 250 mg Methylprednisolone (Medrol) 6 mg PO DAILY [facility] Pantoprazole Sodium (Protonix Ec Tab) 40 mg PO DAILY [facility] Last Admin: 04/23/17 10:47 Dose: 40 mg - Labs Labs: 04/22/17 08:01 04/22/17 08:01 - Constitutional Appears: Well - Head Exam Head Exam: ATRAUMATIC, NORMAL INSPECTION, NORMOCEPHALIC - Eye Exam Eye Exam: EOMI, Normal appearance, PERRL - ENT Exam ENT Exam: Mucous Membranes Moist, Normal Exam - Neck Exam Neck Exam: Full ROM, Normal Inspection. absent: Lymphadenopathy - Respiratory Exam Respiratory Exam: Decreased Breath Sounds - Cardiovascular Exam Cardiovascular Exam: REGULAR RHYTHM, +S1, +S2. absent: Murmur - GI/Abdominal Exam GI & Abdominal Exam: Diminished Bowel Sounds - Rectal Exam Rectal Exam: Deferred
--- NOTE | 2017-04-23 20:05 | PN ---
DATE: 04/23/2017 NEUROLOGICAL PROBLEM: Headache. PHYSICAL EXAMINATION VITAL SIGNS: Blood pressure 130/61, mean arterial pressure of 84, respiratory rate 16, temperature afebrile. NECK: Supple. No carotid bruits. HEART: Sounds regular. CHEST: Fair air entry. EXTREMITIES: No edema of legs. Her headache is completely gone now, however, her rash in the thigh is the same. Rest of the examination is unchanged to compare with the previous examination. LABORATORY DATA: MRI of the brain which was requested early still pending, it is more than 48 hour period. The patient's pulsing dose of steroids have been finished and she is going to go back to methylprednisolone p.o. as she has been taking it at home. The patient's case discussed with registered nurse and she is scheduled to have MRI of the brain on Tuesday. Continue hydration. The patient is neurologically stable. Frank Aburto MD
[2017-04-23] MEDS ORDERED: DiphenhydrAMINE 12.5 mg/5 ml LIQ UD (5 ml) PO STA (21:19)
[2017-04-24] MEDS: Acyclovir 500 MG in Sodium Chloride 0.9% 100 ML IV SCH ×3 (07:31→22:31)
[2017-04-24 09:11] LABS: GFR AFRICAN-AMERICAN > 60
[2017-04-24] MEDS: Enoxaparin 40 mg Syringe SC SCH (10:28)
[2017-04-24] MEDS: Pantoprazole 40 mg EC Tab PO SCH (10:28)
--- NOTE | 2017-04-24 15:02 | CP.PCM.PN ---
Subjective - Date & Time of Evaluation Date of Evaluation: 04/24/17 Time of Evaluation: 08:00 - Subjective Subjective: events noted less pain iv rx renewed rash + Objective - Vital Signs/Intake and Output Vital Signs (last 24 hours): Temp Pulse Resp BP Pulse Ox 98.0 F 79 20 122/79 91 L 04/24/17 00:27 04/24/17 00:27 04/24/17 00:27 04/24/17 00:27 04/24/17 00:27 Intake and Output: 04/24/17 04/24/17 06:59 18:59 Intake Total 100 Balance 100 - Medications Medications: Current Medications Acetaminophen (Tylenol 325mg Tab) 650 mg PO Q6 PRN PRN Reason: fever Last Admin: 04/24/17 08:02 Dose: 650 mg Enoxaparin Sodium (Lovenox) 40 mg SC DAILY [facility] Last Admin: 04/24/17 10:28 Dose: 40 mg Gabapentin (Neurontin) 300 mg PO BID [facility] Last Admin: 04/24/17 10:28 Dose: 300 mg Hydromorphone HCl (Dilaudid) 0.5 mg IVP Q8H PRN PRN Reason: Pain, moderate (4-7) Vancomycin HCl 1 gm/ Sodium (Chloride) 250 mls @ 166.7 mls/hr IVPB Q24H [facility] Last Admin: 04/24/17 10:31 Dose: 166.7 mls/hr Acyclovir 500 mg/ Sodium (Chloride) 100 mls @ 100 mls/hr IV Q8H [facility] Last Admin: 04/24/17 07:31 Dose: 100 mls/hr Lorazepam (Ativan) 2 mg IVP ONCE ONE Stop: 04/25/17 07:01 Methylprednisolone (Medrol) 6 mg PO DAILY [facility] Last Admin: 04/24/17 10:28 Dose: 6 mg Pantoprazole Sodium (Protonix Ec Tab) 40 mg PO DAILY [facility] Last Admin: 04/24/17 10:28 Dose: 40 mg - Labs Labs: 04/22/17 08:01 04/24/17 08:15 - Constitutional Appears: Non-toxic, Chronically Ill - Head Exam Head Exam: NORMOCEPHALIC - Eye Exam Eye Exam: PERRL - ENT Exam ENT Exam: Mucous Membranes Dry - Neck Exam Neck Exam: absent: Lymphadenopathy - Respiratory Exam Respiratory Exam: Decreased Breath Sounds, Clear to Ausculation Bilateral - Cardiovascular Exam Cardiovascular Exam: REGULAR RHYTHM - GI/Abdominal Exam GI & Abdominal Exam: Distended, Soft - Rectal Exam Rectal Exam: Deferred - Exam Exam: NORMAL INSPECTION Assessment and Plan (1) Intractable headache Status: Acute (2) Skin lesion Status: Acute (3) Migraine Status: Acute - Assessment and Plan (Free Text) Assessment: coint iv rx
[2017-04-24 16:12] VITALS: O2SAT 96
--- NOTE | 2017-04-24 17:52 | CP.PCM.PN ---
Subjective - Date & Time of Evaluation Date of Evaluation: 04/24/17 Time of Evaluation: 08:40 - Subjective Subjective: clinically same Objective - Vital Signs/Intake and Output Vital Signs (last 24 hours): Temp Pulse Resp BP Pulse Ox 98.1 F 57 L 20 137/84 96 04/24/17 16:11 04/24/17 16:11 04/24/17 16:11 04/24/17 16:11 04/24/17 16:11 Intake and Output: 04/24/17 04/24/17 06:59 18:59 Intake Total 100 850 Balance 100 850 - Medications Medications: Current Medications Acetaminophen (Tylenol 325mg Tab) 650 mg PO Q6 PRN PRN Reason: fever Last Admin: 04/24/17 08:02 Dose: 650 mg Enoxaparin Sodium (Lovenox) 40 mg SC DAILY [facility] Last Admin: 04/24/17 10:28 Dose: 40 mg Gabapentin (Neurontin) 300 mg PO BID [facility] Last Admin: 04/24/17 17:42 Dose: 300 mg Hydromorphone HCl (Dilaudid) 0.5 mg IVP Q8H PRN PRN Reason: Pain, moderate (4-7) Vancomycin HCl 1 gm/ Sodium (Chloride) 250 mls @ 166.7 mls/hr IVPB Q24H [facility] Last Admin: 04/24/17 10:31 Dose: 166.7 mls/hr Acyclovir 500 mg/ Sodium (Chloride) 100 mls @ 100 mls/hr IV Q8H [facility] Last Admin: 04/24/17 15:47 Dose: 100 mls/hr Lorazepam (Ativan) 2 mg IVP ONCE ONE Stop: 04/25/17 07:01 Methylprednisolone (Medrol) 6 mg PO DAILY [facility] Last Admin: 04/24/17 10:28 Dose: 6 mg Pantoprazole Sodium (Protonix Ec Tab) 40 mg PO DAILY [facility] Last Admin: 04/24/17 10:28 Dose: 40 mg - Labs Labs: 04/22/17 08:01 04/24/17 08:15 - Constitutional Appears: Well - Head Exam Head Exam: ATRAUMATIC, NORMAL INSPECTION, NORMOCEPHALIC - Eye Exam Eye Exam: EOMI, Normal appearance, PERRL - ENT Exam ENT Exam: Mucous Membranes Moist, Normal Exam - Neck Exam Neck Exam: Full ROM, Normal Inspection. absent: Lymphadenopathy - Respiratory Exam Respiratory Exam: Decreased Breath Sounds - Cardiovascular Exam Cardiovascular Exam: REGULAR RHYTHM, +S1, +S2. absent: Murmur - GI/Abdominal Exam GI & Abdominal Exam: Diminished Bowel Sounds - Rectal Exam Rectal Exam: Deferred
--- NOTE | 2017-04-25 01:39 | PN ---
DATE: 04/24/2017 NEUROLOGICAL PROBLEM: Headache, L3 dermatomal involvement of shingles. PHYSICAL EXAMINATION VITAL SIGNS: Blood pressure 122/79, mean arterial pressure of 93, respirations 16, temperature afebrile. The patient is asymptomatic. No headache. comfortably watching TV a football game. Examination is unchanged to compare with the previous examination. The patient is scheduled to have MRI of the brain tomorrow. However, from neurological point of view, the patient is cleared. The patient can be discharged and should have a followup visit with me as outpatient as well as IV antibiotics and antiviral drugs should be continued as per ID recommendation. Frank Aburto MD
[2017-04-25] MEDS: Acyclovir 500 MG in Sodium Chloride 0.9% 100 ML IV SCH (06:52)
[2017-04-25 08:50] VITALS: BP 118/80; PULSE 78; TEMP 98.6
[2017-04-25] MEDS: Enoxaparin 40 mg Syringe SC SCH (09:33)
[2017-04-25] MEDS: Pantoprazole 40 mg EC Tab PO SCH (09:33)
--- NOTE | 2017-04-25 11:31 | MRI ---
PROCEDURE: MRI BRAIN WITHOUT CONTRAST HISTORY: intractable headache COMPARISON: None. TECHNIQUE: Multiplanar, multisequence MR images of the brain were obtained without intravenous contrast enhancement. FINDINGS: HEMORRHAGE: None DWI: No evidence of an acute or early subacute infarction. BRAIN PARENCHYMA: Intrinsic signal throughout the daniels and white matter structures above or below the tentorium are appear within normal limits. Corticomedullary differentiation is well preserved and there is no mass effect. Midline brain and appears diffusely unremarkable click corpus callosum. There is no suspicious extra-axial collection identified. Craniocervical junction appears intact. VENTRICLES: Unremarkable. No hydrocephalus. CRANIUM: Unremarkable. ORBITS: Grossly unremarkable. PARANASAL SINUSES/MASTOIDS: Clear VASCULAR SYSTEM: Skull base flow voids intact. OTHER FINDINGS: None. IMPRESSION: Unremarkable non contrast enhanced MRI of the brain.
--- NOTE | 2017-04-25 11:48 | CP.PCM.PN ---
Subjective - Date & Time of Evaluation Date of Evaluation: 04/25/17 Time of Evaluation: 06:00 - Subjective Subjective: no fever iv rx renewed Objective - Vital Signs/Intake and Output Vital Signs (last 24 hours): Temp Pulse Resp BP Pulse Ox 98.6 F 78 20 118/80 96 04/25/17 08:00 04/25/17 08:00 04/25/17 08:00 04/25/17 08:00 04/25/17 08:00 - Medications Medications: Current Medications Acetaminophen (Tylenol 325mg Tab) 650 mg PO Q6 PRN PRN Reason: fever Last Admin: 04/25/17 08:11 Dose: 650 mg Enoxaparin Sodium (Lovenox) 40 mg SC DAILY [facility] Last Admin: 04/25/17 09:33 Dose: 40 mg Gabapentin (Neurontin) 300 mg PO BID [facility] Last Admin: 04/25/17 09:33 Dose: 300 mg Hydromorphone HCl (Dilaudid) 0.5 mg IVP Q8H PRN PRN Reason: Pain, moderate (4-7) Vancomycin HCl 1 gm/ Sodium (Chloride) 250 mls @ 166.7 mls/hr IVPB Q24H [facility] Last Admin: 04/25/17 09:34 Dose: 166.7 mls/hr Acyclovir 500 mg/ Sodium (Chloride) 100 mls @ 100 mls/hr IV Q8H [facility] Last Admin: 04/25/17 06:52 Dose: 100 mls/hr Methylprednisolone (Medrol) 6 mg PO DAILY [facility] Pantoprazole Sodium (Protonix Ec Tab) 40 mg PO DAILY [facility] Last Admin: 04/25/17 09:33 Dose: 40 mg - Labs Labs: 04/22/17 08:01 04/24/17 08:15 Assessment and Plan (1) Intractable headache Status: Acute (2) Skin lesion Status: Acute (3) Migraine Status: Acute
--- NOTE | 2017-04-25 17:42 | CP.PCM.PN ---
Subjective - Date & Time of Evaluation Date of Evaluation: 04/25/17 Time of Evaluation: 11:00 - Subjective Subjective: PT SEEN AND EXAMINED TODAY, PT DENIES ANY CP, SOB, RESP EASY AND UNLABORED, NAD. Objective - Vital Signs/Intake and Output Vital Signs (last 24 hours): Temp Pulse Resp BP Pulse Ox 98.6 F 78 20 118/80 96 04/25/17 08:00 04/25/17 08:00 04/25/17 08:00 04/25/17 08:00 04/25/17 08:00 - Labs Labs: 04/22/17 08:01 04/24/17 08:15 Assessment and Plan - Assessment and Plan (Free Text) Plan: 32 Y/O FEMALE WITH PMHX ASTHMA, DVT, MYOSITIS ADMITTED FOR HEADACHE FOR 5 DAYS AND LEFT THIGH RASH ID AND NEURO CONSULTED MRI DONE- F/U RESULT OUTPT W/DR MALDONADO RASH LIKELY SHINGLES, TREATED WITH ACYCLOVIR AND ABX RX FOR ACYCLOVIR 800 MG PO 5 TIMES A DAY FOR 10 DAYS- PER DR LINARES F/U WITH DR NETTLES AND DR MALDONADO IN THE OFFICE RETURN TO ER IF ANY WORSENING S/S AGREE, VERBALIZE UNDERSTANDING
[2017-04-25 19:12] LABS: Interpretation Negative (Negative); Interpretation Positive (Negative); RNP Interpretation Negative (Negative)
[2017-04-26 08:36] LABS: LYME DISEASE SCREEN <0.90 index
[2017-04-26] MEDS ORDERED: METHYLPREDNISOLONE 2 MG PO SCH (10:00)
[2017-04-26 12:02] LABS: R. TYPHI IGG Not Detected (Not Detected); R. TYPHI IGM Not Detected (Not Detected); RMSF IGG Not Detected (Not Detected)
[2017-04-26 16:06] LABS: CCP IGG <16 Units (<20)
[2017-04-27 20:42] LABS: VARICELLA-ZOSTER AB (IGM) <=0.90 (<=0.90)
== END 2017-04-25 16:50 | disposition home or self-care (01) | DRG 421 ==
LOC: C.ER 16:56 → C.9E 22:25 → C.5S 04-20 14:56
PROVIDERS: ADMIT Internal Medicine Nephrology; ATTEND Internal Medicine Nephrology
PROC: 02H633Z Insertion of Infusion Device into Right Atrium, Percutaneous Approach (ICD-10-PCS; principal; 2017-04-22)
DX: B34.9 Viral infection, unspecified (principal); B02.9 Zoster without complications; G43.919 Migraine, unspecified, intractable, without status migrainosus; J45.909 Unspecified asthma, uncomplicated; M60.9 Myositis, unspecified; Z86.718 Personal history of other venous thrombosis and embolism; Z91.013 Allergy to seafood